=== PATIENT | female | born 1955 | race Caucasian/White ===

== ENCOUNTER 2017-02-11 22:01 | Emergency (ER) | payer MEDICAID ==
[~2017-02-11] VITALS: Ht 160 cm; Wt 95.5 kg
[2017-02-11] MEDS ORDERED: ACETAMINOPHEN 500 MG TABLET ONE (22:14)
[2017-02-11] MEDS ORDERED: ACETAMINOPHEN 500 MG TABLET PO ONE (22:15)
[2017-02-11] MEDS ORDERED: LISI-662 PO (22:20)
[2017-02-11] MEDS ORDERED: GABA-529 PO (22:20)
[2017-02-11] MEDS ORDERED: AMLO-512 PO (22:20)
[2017-02-11] MEDS ORDERED: SIMV-261 PO (22:20)
[2017-02-11] MEDS ORDERED: METF500T4 PO (22:20)
[2017-02-11 22:23] LABS: GLUCOSE,POINT OF CARE 210 MG/DL (70-110)
[2017-02-11] MEDS ORDERED: 0.9% SODIUM CHLORIDE 15 ML NEB SOLUTION NEB ONE (22:25)
[2017-02-11] MEDS ORDERED: ALBUTEROL SULFATE 5 MG/ML 20 ML NEB SOLN [BULK] NEB ONE (22:30)
[2017-02-11] MEDS ORDERED: IPRATROPIUM BROMIDE 0.5 MG/2.5 ML NEB SOLUTION NEB ONE (22:30)
[2017-02-11 23:44] LABS: BASOPHILS # (AUTO) 0.06 K/uL (0.00-0.20); BASOPHILS % (AUTO) 0.5 % (0.0-2.0); EOSINOPHILS # (AUTO) 0.21 K/uL (0.00-0.70); EOSINOPHILS % (AUTO) 1.88 % (1.0-6.0); HEMATOCRIT 33.8 % (36-46); HEMOGLOBIN 11.2 g/dL (12.0-16.0); LYMPHOCYTES # (AUTO) 2.9 K/uL (1.0-4.8); LYMPHOCYTES % (AUTO) 25.6 % (22.0-44.0); MEAN CORPUSCULAR HEMOGLOBIN 31.3 pg (26.0-34.0); MEAN CORPUSCULAR HGB CONC 33.1 G/dL (31.0-37.0); MEAN CORPUSCULAR VOLUME 95 fL (80-100); MONOCYTES # (AUTO) 0.9 K/uL (0.1-1.0); MONOCYTES % (AUTO) 7.9 % (2.0-9.0); NEUTROPHILS # (AUTO) 7.4 K/uL (1.8-7.7); NEUTROPHILS % (AUTO) 64.2 % (40.0-70.0); PLATELET COUNT (AUTO) 192 K/uL (150-450); RED BLOOD CELL COUNT(AUTO) 3.57 MIL/uL (4.00-5.20); RED CELL DISTRIBUTION WIDTH 14.3 % (11.5-14.5)
[2017-02-12 00:06] LABS: CALCIUM, TOTAL 8.3 mg/dL (8.8-10.5); CREATININE 1.11 mg/dL (0.60-1.30)
[2017-02-12 00:27] VITALS: BP 121/67
== END 2017-02-12 00:38 | disposition home or self-care (01) ==
LOC: EMS 22:04
DX: J40 Bronchitis, not specified as acute or chronic (principal); I10 Essential (primary) hypertension; E11.9 Type 2 diabetes mellitus without complications; R00.0 Tachycardia, unspecified
CPT/HCPCS: 36415; 71010; 80048; 82962; 83880; 84484; 85025; 93005; 94644; 99285; J7611

== ENCOUNTER 2017-10-08 10:51 | Emergency (ER) | payer MEDICAID ==
[~2017-10-08] VITALS: Ht 167.6 cm; Wt 95.6 kg
[~2017-10-08 10:51] MED LIST: ATOR40TA28 PO
[2017-10-08] MEDS ORDERED: [UNRECOGNIZED DRUG - OTHER] PO (10:57)
[2017-10-08] MEDS ORDERED: IPRATROPIUM BROMIDE 0.5 MG/2.5 ML NEB SOLUTION NEB ONE (11:15)
[2017-10-08] MEDS ORDERED: ALBUTEROL SULFATE 2.5 MG/0.5 ML NEB SOLUTION NEB ONE (11:15)
[2017-10-08] MEDS ORDERED: MethylPREDNISolone SOD SUCC 125 MG/2 ML VIAL IVP ONE (11:15)
[2017-10-08 11:31] LABS: BASOPHILS % (AUTO) 0.6 % (0.0-2.0); HEMATOCRIT 39.2 % (36-46); HEMOGLOBIN 12.8 g/dL (12.0-16.0); LYMPHOCYTES # (AUTO) 4.4 K/uL (1.0-4.8); LYMPHOCYTES % (AUTO) 34.5 % (22.0-44.0); MEAN CORPUSCULAR HGB CONC 32.5 G/dL (31.0-37.0); MEAN CORPUSCULAR VOLUME 95 fL (80-100); MONOCYTES # (AUTO) 0.3 K/uL (0.1-1.0); MONOCYTES % (AUTO) 2.7 % (2.0-9.0); NEUTROPHILS % (AUTO) 55.2 % (40.0-70.0); PLATELET COUNT (AUTO) 282 K/uL (150-450); RED BLOOD CELL COUNT(AUTO) 4.12 MIL/uL (4.00-5.20); RED CELL DISTRIBUTION WIDTH 13.8 % (11.5-14.5)
[2017-10-08 11:37] LABS: CALCIUM, TOTAL 8.9 mg/dL (8.8-10.5); CREATININE 1.13 mg/dL (0.60-1.30)
[2017-10-08 11:44] LABS: ALBUMIN 3.5 g/dL (3.4-5.0); BILIRUBIN,TOTAL 0.5 mg/dL (0.1-1.0); TOTAL PROTEIN, SERUM 7.7 g/dL (6.4-8.2)
[2017-10-08 12:46] VITALS: BP 122/56
== END 2017-10-08 12:53 | disposition home or self-care (01) ==
LOC: EMS 10:53
DX: T78.3XXA Angioneurotic edema, initial encounter (principal); T78.2XXA Anaphylactic shock, unspecified, initial encounter; J45.909 Unspecified asthma, uncomplicated; E11.9 Type 2 diabetes mellitus without complications; I10 Essential (primary) hypertension; Z90.49 Acquired absence of other specified parts of digestive tract
CPT/HCPCS: 36415; 71045; 80053; 82962; 83880; 84484; 85025; 93005; 94640; 96374; 99291; J2930; J7613